=== PATIENT | female | born 1965 | race Two or more races ===

== ENCOUNTER 2022-05-13 18:19 | Emergency (ER) | payer OTHER ==
[~2022-05-13] VITALS: Ht 152.4 cm; Wt 70.5 kg
[2022-05-13] MEDS ORDERED: KETOROLAC TROMETHAMINE 60 MG/2 ML VIAL IM ONE (20:00)
[2022-05-13 21:51] VITALS: BP 128/74
== END 2022-05-13 21:51 | disposition home or self-care (01) ==
LOC: EMS 18:22
DX: S86.912A Strain of unspecified muscle(s) and tendon(s) at lower leg level, left leg, initial encounter (principal); Z98.890 Other specified postprocedural states; Z77.22 Contact with and (suspected) exposure to environmental tobacco smoke (acute) (chronic); X58.XXXA Exposure to other specified factors, initial encounter; Y93.89 Activity, other specified; Y92.89 Other specified places as the place of occurrence of the external cause; Y99.8 Other external cause status
CPT/HCPCS: 99283; 29505; 73562; 96372; J1885

== ENCOUNTER 2023-07-05 14:17 | Emergency (ER) | payer OTHER ==
[~2023-07-05] VITALS: Ht 152.4 cm; Wt 79.5 kg
[2023-07-05 14:18] VITALS: BP 142/85; PULSE 80; RESP 18; TEMP 98.5
[2023-07-05] MEDS ORDERED: LIDOCAINE 5% TRANSDERMAL PATCH TD ONE (15:45)
[2023-07-05] MEDS ORDERED: KETOROLAC TROMETHAMINE 30 MG/ML VIAL IM ONE (15:45)
== END 2023-07-05 16:34 | disposition home or self-care (01) ==
LOC: EMS 14:29
DX: M25.511 Pain in right shoulder (principal); Z98.890 Other specified postprocedural states
CPT/HCPCS: 99283; 29105; 73030; 96372; J1885